=== PATIENT | male | born 1950 | race Caucasian/White ===

== ENCOUNTER 2016-12-29 17:47 | Emergency (ER) | payer OTHER ==
[~2016-12-29] VITALS: Ht 177.8 cm; Wt 77.1 kg
[~2016-12-29 17:47] MED LIST: ADVAIR 250-501 EACH INH; AMBIEN10 M1 PO; COZAAR25 M1 PO; FLOMAX0.4 M1 PO; HYDROXYZINE HCL25 M2 PO; LANSOPRAZOLE30 M2 PO; PROAIR HFA8.5 GM INH; VIBRAMYCIN100 MG PO
[2016-12-29] MEDS ORDERED: FLUTICASONE PRO16 GM (18:09)
[2016-12-29] MEDS ORDERED: DICLOFENAC SODI75 M2 PO (18:09)
--- NOTE | 2016-12-29 18:38 | ED INFLUENZA/URI COMPLAINT ---
History of Present Illness General Chief Complaint: General Adult Stated Complaint: PT HAS 104 TEMP,ACHES,EYE GLOSSY,COUGHING Source: patient, old records Exam Limitations: no limitations Vital Signs & Intake/Output Vital Signs & Intake/Output Vital Signs Date Time Temp Pulse Resp B/P Pulse O2 O2 Flow FiO2 Ox Delivery Rate 12/29 1918 100.1 85 20 114/58 98 Room Air 12/29 1846 99 Room Air 12/29 1832 101.7 12/29 1751 99.6 105 18 126/69 96 Room Air Allergies Coded Allergies: Penicillins (UNKNOWN PER PT 12/29/16) Reconcile Medications Diclofenac Sodium 75 MG TABLET.DR 1 TAB PO BID ANKLES (Reported) Fluticasone Propionate (Unknown Strength) SPRAY.SUSP (Unknown Dose) UNKNOWN ( Reported) Lansoprazole 30 MG CAPSULE.DR 1 CAP PO DAILY GERD (Reported) Losartan Potassium (Cozaar) 25 MG TABLET 1 TAB PO DAILY BP (Reported) Oseltamivir Phosphate (Tamiflu) 75 MG CAPSULE 1 CAP PO BID influenza Tamsulosin HCl (Flomax) 0.4 MG CAP.ER.24H 1 CAP PO DAILY BPH (Reported) Zolpidem Tartrate (Ambien) 10 MG TABLET 1 TAB PO QPMP SLEEP (Reported) Triage Note: PT STATES THAT HE HAS HAD FLU LIKE SYMPTOMS SINCE LAST PM, BODY ACHES , HIGH FEVER, TOOK TYLENOLL AT 1700 AND TEMP AT TRIAGE 99.9 Triage Nurses Notes Reviewed? yes Onset: Abrupt Duration: day(s): (1), constant Timing: recent history Severity: mild, moderate Severity Numbers: 5 No Modifying Factors: none Associated Symptoms: cough HPI: This is a 66-year-old male with history of asthma reflux he presents complaining of a 2 day history of generalized body aches fever chills as high as 104 earlier today for which he took Motrin at 5:00, productive cough of clear to yellow sputum. He denies nausea vomiting shortness of breath or chest pain. He states he has not needed to use his inhaler. He denies headache rhinorrhea sore throat ingestion or ear pain. No sick contacts recent travel is not thought carefully symptoms until today. He did not receive a flu shot, he does not smoke. (TONY BEDOLLA,FLAQUITA) Past History Travel History Traveled to [place] past 21 day No Medical History Any Pertinent Medical History? see below for history Cardiovascular: hypertension Respiratory: asthma (due to allergies) Gastrointestinal: GERD, Jones's esophagus History of MRSA: No History of VRE: No History of CDIFF: No Pneumonia Vaccine: 12/28/15 Surgical History Surgical History: non-contributory Psychosocial History Who do you live with Spouse Services at Home None What is your primary language Bengali Tobacco Use: Never used ETOH Use: denies use Illicit Drug Use: denies illicit drug use Family History Family History, If Any: MOTHER Relation not specified for: FH: hypertension Hx Contributory? No (FLAQUITA MARKS) Review of Systems Review of Systems Constitutional: Reports: see HPI. All Other Systems: Reviewed and Negative Comments Review of systems: See HPI, All other systems negative. Constitutional, no chills fever, no malaise no weight loss HEENT: No visual changes no sore throat no congestion, no ear pain Cardiovascular: No chest pain , no palpitation Skin, no rashes, no change in skin Respiratory: No dyspnea cough sputum no hemoptysis GI: No nausea no vomiting, no diarrhea, no bloating/constipation : No dysuria No hematuria, Muscle skeletal: No joint pain, no back pain, no neck pain, Neurologic: No numbness no headache Psych: No stress Heme/endocrine: No bruising no bleeding Immunology: No lymphadenopathy (FLAQUITA MARKS) Physical Exam Physical Exam General Appearance: well developed/nourished, alert, awake Ears, Nose, Throat: normal ENT inspection, moist mucous membrane, hearing grossly normal, Tympanic normal, pharynx normal Comments: Well-developed well-nourished person in no acute distress Head/Face: Atraumatic, no maxillary/frontal sinus tenderness, no facial swelling Eyes: PERRL, EOMI, no conjunctival injection. No nystagmus Ear:External auditory canal and Tympanic membranes clear, no erythema, no FB. Nose: atraumatic.Normal inspection: No bleeding Throat: Moist mucous membranes.Pharynx normal. No pharyngeal erythema/exudate seen. No stridor/drooling or assymetry. No swelling or edema. Neck: Supple, no lymphadenopathy, FROM negative Brudzinski sign Back: Nontender, no CVA tenderness. Full range of motion Cardiovascular: Regular rate and rhythms no murmurs rubs Respiratory: Chest nontender.There were no bony deformities, no asymmetry. No respiratory distress. Patient speaking in full complete sentences. Breath sounds clear to auscultation bilaterally: NO W/R/R Abdomen: Soft, nontender nondistended, no appreciable organomegaly. Normal bowel sounds. No rebound/guarding, Extremity: No edema, full range of motion of extremities Neuro: Alert oriented x3, motor sensory normal. There were no obvious focal neurologic abnormalities. Skin: No appreciable rash on exposed skin, skin is warm and dry. Psych: Mood and affect is normal, memory and judgment is normal. Core Measures Severe Sepsis Present: No Septic Shock Present: No (FLAQUITA MARKS) Progress Differential Diagnosis: influenza, meningitis, otitis, pneumonia, pharyngitis, sinusitis, BRONCHITIS Plan of Care: Orders Procedure Date/time Status TROPONIN LEVEL 12/29 1831 Complete COMPREHENSIVE METABOLIC PANEL 12/29 183 Complete CBC WITHOUT DIFFERENTIAL 12/29 1831 Complete EKG 12/29 183 Active RAPID VIRAL INFLUENZA A 12/29 182 Complete Laboratory Tests 12/29/16 1840: Anion Gap 13, Estimated GFR > 60, BUN/Creatinine Ratio 22.0, Glucose 134 H, Calcium 9.2, Total Bilirubin 1.4 H, AST 27, ALT 53, Alkaline Phosphatase 65, Troponin I < 0.01, Total Protein 7.5, Albumin 4.4, Globulin 3.1, Albumin/ Globulin Ratio 1.4, CBC w Diff NO MAN DIFF REQ, RBC 4.70, MCV 88.9, MCH 29.9, RDW 13.2, MPV 9.2, Gran % 83.1 H, Lymphocytes % 6.3 L, Monocytes % 9.8 H, Eosinophils % 0.6, Basophils % 0.2, Absolute Granulocytes 5.2, Absolute Lymphocytes 0.4 L, Absolute Monocytes 0.6, Absolute Eosinophils 0, Absolute Basophils 0, PUBS MCHC 33.6 Patient medicated with IV fluids Toradol 30 IV chest x-ray labs. Ordered. CASE D/W DR MANCERA, [employer] REVIEWD 12/29/2016 7:50:05 PM patient reports to feeling improved IV fluids are finished, I discussed with them at length all of his lab results. Results prescription for Tamiflu was called in to [facility] advise close follow up with his primary care physician, return to emergency room anytime sooner if symptoms worsen he has persistent fevers or is unable to tolerate by mouth they feel comfortable this plan clear discharge (FLAQUITA MARKS) Diagnostic Imaging: Viewed by Me: Radiology Read. Discussed w/RAD: Radiology Read. Radiology Impression: PATIENT: IPNKY MONTERO PRESENT AGE: 66 PATIENT ACCOUNT NO: [id number] : 52 LOCATION: [facility] ORDERING PHYSICIAN: FLAQUITA BEDOLLA SERVICE DATE: 12/29/16 EXAM TYPE: RAD - XRY-CHEST XRAY, PA AND LATERAL EXAMINATION: XR CHEST CLINICAL INFORMATION: Cough. Assess for pneumonia. COMPARISON: Chest x-ray 04/16/2016. TECHNIQUE: AP and lateral views of the chest were obtained. FINDINGS: The lung michaud are well expanded and appear clear bilaterally. The cardiac silhouette is normal. There are no pleural effusions or pneumothorax. The central pulmonary vasculature is normal. The hilar regions appear normal. There are degenerative changes in the thoracic spine. Small metallic densities projected over the chest are likely artifactual. IMPRESSION: 1. There are no acute cardiopulmonary findings. DICTATED BY: KENYON MARTINEZ MD DATE/TIME DICTATED:12/29/161925 MARITIME GUARD :JERAMIE DATE/TIME TRANSCRIBED:12/29/161925 CONFIDENTIAL, DO NOT COPY WITHOUT APPROPRIATE AUTHORIZATION. <Electronically signed in Other Vendor System> SIGNED BY: KENYON MARTINEZ MD 12/29/161932 Initial ED EKG: normal intervals, normal p-waves, normal QRS complex, normal sinus rhythm (70) (FLAQUITA MARKS) Departure Departure Time of Disposition: 1948 Disposition: HOME OR SELF CARE Condition: Stable Clinical Impression Primary Impression: Influenza Referrals: RAJI DILLON MD (PCP/Family) Additional Instructions: TAMIFLU DIRECTED. TYLENOL OR MOTRIN EVERY 4-6 HOURS IF YOUR TEMPERATURE IS GREATER THAN 100.4, OR YOU HAVE PAIN. DRINK PLENTY OF FLUIDS. FOLLLOW UP WITH YOUR PMD THIS WEEK, RETURN TO THE ER AT ANYTIME SOONER WITH ANY CONCERNS Departure Forms: Customer Survey General Discharge Information Prescriptions: Current Visit Scripts Oseltamivir Phosphate (Tamiflu) 1 CAP PO BID #10 CAP (FLAQUITA MARKS) PA/WATCH CRYSTAL MOLDER Co-Sign Statement Statement: ED Attending supervision documentation- x I saw and evaluated the patient. I have also reviewed all the pertinent lab results and diagnostic results. I agree with the findings and the plan of care as documented in the PA's/WATCH CRYSTAL MOLDER's documentation. [] I have reviewed the ED Record and agree with the PA's/WATCH CRYSTAL MOLDER's documentation. [] Additions or exceptions (if any) to the PAs/WATCH CRYSTAL MOLDER's note and plan are summarized below: [] (CALDERON CROOK,[place])
[2016-12-29 18:52] LABS: WHITE BLOOD CELL COUNT 6.2 /CUMM (4.8-10.8)
[2016-12-29 19:01] LABS: ABSOLUTE BASOPHIL COUNT 0 /CUMM (0.0-0.2); ABSOLUTE EOSINOPHIL COUNT 0 /CUMM (0.0-0.7); ABSOLUTE GRANULOCYTE CT 5.2 /CUMM (1.4-6.5); ABSOLUTE LYMPH COUNT 0.4 /CUMM (1.2-3.4); ABSOLUTE MONOCYTE COUNT 0.6 /CUMM (0.10-0.60); BASOPHIL % 0.2 % (0.0-2.0); EOSINOPHIL % 0.6 % (0-5); GRANULOCYTE % 83.1 % (42.2-75.2); HEMATOCRIT 41.7 % (42-52); MEAN CORPUSCULAR HGB 29.9 PG (27.0-31.0); MEAN CORPUSCULAR HGB CONC 33.6 G/DL (33.0-37.0); MEAN CORPUSCULAR VOLUME 88.9 FL (80.0-94.0); MEAN PLATELET VOLUME 9.2 FL (7.4-10.4); PLATELET COUNT 156 /CUMM (130-400); RBC DISTRIBUTION WIDTH 13.2 % (11.5-14.5)
[2016-12-29 19:19] VITALS: BP 114/58
--- NOTE | 2016-12-29 19:33 | RADIOLOGY REPORT ---
EXAMINATION: XR CHEST CLINICAL INFORMATION: Cough. Assess for pneumonia. COMPARISON: Chest x-ray 04/16/2016. TECHNIQUE: AP and lateral views of the chest were obtained. FINDINGS: The lung michaud are well expanded and appear clear bilaterally. The cardiac silhouette is normal. There are no pleural effusions or pneumothorax. The central pulmonary vasculature is normal. The hilar regions appear normal. There are degenerative changes in the thoracic spine. Small metallic densities projected over the chest are likely artifactual. IMPRESSION: 1. There are no acute cardiopulmonary findings.
[2016-12-29] MEDS ORDERED: TAMIFLU75 M1 PO (19:51)
== END 2016-12-29 20:15 ==
LOC: ERH 17:47
PROVIDERS: Physician Assistant Medical
DX: J11.1 Influenza due to unidentified influenza virus with other respiratory manifestations (principal)
CPT/HCPCS: 87804; 87804-59; 93005; 93010; 96361; 96374; J1885